=== PATIENT | female | born 1965 | race Caucasian/White ===

== ENCOUNTER 2023-12-12 11:21 | Emergency (ER) | payer OTHER, SELFPAY ==
[2023-12-12 11:26] VITALS: BP 133/84
--- NOTE | 2023-12-12 11:53 | ED.GENMED ---
History of Present Illness
General
Chief Complaint: DVT/Possible Blood Clot
Source: patient
Exam Limitations: none
Time Seen by Provider: 12/12/23 11:36
Nursing documentation reviewed up to this point in time: agreed with
History of Present Illness
History of Present Illness:
Patient is a 58-year-old female who presents to the ER for evaluation. Patient reports about a week ago she noticed bruising on her right lower leg but denies any injury. She has noticed soreness to this leg for the past 3 days. She has no prior
history of DVT PE. She is not on control/estrogen does not smoke. There is a very small area of bruising to the right wrist. No blood thinners. She denies shortness of breath.
Past History
Past History
ED Past Medical History: Psychiatric (Anxiety) and Other (Chronic sinusitis)
ED Past Surgical History: and Other (Gastric lap band 2007)
Social History
Tobacco: Non-smoker
Alcohol: Occasional
Personal:
Living: with family
Employment: Employed
Family History
Family History: Hypertension; Negative Early CAD
Review of Systems
Review of Systems
Allergies reviewed?: Yes
All Other Systems: ROS reviewed and negative except as documented in HPI and ROS
Constitutional: Reports no symptoms
Cardiac: Reports no symptoms
ABD/GI: Reports no symptoms
Musculoskeletal: Reports no symptoms
Skin: Reports no symptoms
Neurological: Reports no symptoms
Psychiatric: Reports no symptoms
Phy Exam
General Physical Exam
General Presentation: no apparent distress
General Skin: warm and dry
General Habitus: normal
General Mental: alert
General Hydration: appears well hydrated
Neurological Exam
Neurological Exam: alert and oriented x3
[place] Coma Scale
Eye Opening: Spontaneous
Verbal Response: Oriented
Motor Response: Obeys Commands
GCS Total Score: 15
Musculoskeletal Exam
Musculoskeletal Exam: other (rle with strong pulses + ecchymosis to right lower leg no obvious swelling nontender full range of motion to knee ankle; very sm area of ecchymosis to right wrist )
Skin Exam
Skin Exam: normal color and warm/dry
Psychiatric Exam
Psychiatric Exam: normal mood/affect
Course
Orders/Labs/Results
Orders:
Orders
12/12/23 11:34
US Periph Venous LOWER Ext RT Urgent
Comment:
Reason For Exam: Atraumatic swelling
12/12/23 12:00
Complete Blood Count/With Diff Urgent
Comprehensive Metabolic Panel Urgent
Abnormal Lab Results
12/12/23
12:00
Hgb 16.1 H g/dL
(12.0-16.0)
Absolute Monos (auto) 0.7 H 10^3/uL
(0.1-0.6)
Absolute Eos (auto) 0.8 H 10^3/uL
(0-0.7)
Eosinophils % 7.7 H %
(0-6)
BUN 23 H mg/dl
(7-17)
Glucose 110 H mg/dl
(70-99)
Calcium 10.5 H mg/dl
(8.4-10.2)
12/12/23 12:00
12/12/23 12:00
Vital Signs
Initial and Last Documented VS:
Initial Vital Signs
Temp Pulse Resp BP Pulse Ox
98.1 F 102 18 133/84 98
12/12/23 11:26 12/12/23 11:26 12/12/23 11:26 12/12/23 11:26 12/12/23 11:26
Last Documented Vital Signs
Temp Pulse Resp BP Pulse Ox
98.1 F 102 18 133/84 98
12/12/23 11:26 12/12/23 11:26 12/12/23 11:26 12/12/23 11:26 12/12/23 11:26
MDM/Problems Addressed
MDM/Problems Addressed:
Patient is a 58-year-old female who presented for right leg bruising soreness though she reported no injury. She also small small amount of bruising to her right wrist.
She denies any shortness of breath fever chills. No prior history of DVT PE. She was concerned about possible blood clot. On exam there is no obvious swelling there is some ecchymosis as documented right lower leg it is very small amount of right
wrist she manage her self but is unsure. Ultrasound negative for DVT normal platelets no other acute findings patient ambulate with a steady gait well-appearing will DC with outpatient follow-up discussed return if any worsening of symptoms and
continue to follow-up with family doctor for reevaluation.
*Radiology
Radiology exam reviewed: radiology read reviewed and other (US neg )
*Pulse Oximetry
Patient hypoxic: no
*Critical Care Note
Total Time (30-74mins, 75-104mins- exclusive of procedures): Not Applicable
ED Attending Note
-
Portions of this chart may have been created with voice recognition software.� Occasional wrong word or��sound alike� substitutions may have occurred due to the inherent limitations of voice recognition software.
Discharge Plan
Departure
Patient Disposition: Home (Routine Discharge)
Date of Disposition: 12/12/23
Time of Disposition: 14:37
Patient with high blood pressure during this ER visit?: Yes
Condition: Fair
Covid-19: Not Applicable
Discharge Problem:
Acute leg pain
Prescriptions:
No Action
sertraline 50 MG tablet
50 mg PO DAILY
Control Pills
Patient Comments:
Control Pills. Patient takes a 3 week cycle pill.
oxycodone-acetaminophen 1 TABLET tablet
1 tab PO Q4HPRN PRN (Reason: moderate pain)
Patient Comments:
Can take to supplement pain relief of Tylenol or Advil #15 prescribed
Referrals:
Michaelle Barnes, [Family Provider] -
Activity Restrictions/Additional Instructions:
As discussed your ultasound is negative for a blood clot. There were no acute abnormalities on your labs. Follow-up with your family doctor the next several days for reevaluation of your symptoms. It is recommended that if symptoms persist then
a repeat ultrasound may be required.
Return if any worsening of symptoms.
Interventions
Interventions:
*Risk Screen - Suicide Last Done: 12/12/23 11:26
*General Assessment Last Done: 12/12/23 11:26
*Neglect/Abuse Screening Last Done: 12/12/23 11:26
Discharge Date and Time
Print Language: EGYPTIAN
[2023-12-12 12:07] LABS: % Basophils 0.8 % (0-2); % Eosinophils 7.7 % (0-6); % Immature Granulocytes 0.2 % (0-0.5); % Lymphocytes 33.6 % (20.5-51.1); % Neutrophils 50.7 % (42.2-75.2); Absolute Basophils 0.1 10^3/uL (0-0.2); Absolute Eosinophils 0.8 10^3/uL (0-0.7); Absolute Lymphocytes 3.4 10^3/uL (1.2-3.4); Absolute Monocytes 0.7 10^3/uL (0.1-0.6); Absolute Neutrophils 5.1 10^3/uL (1.4-6.5); Hematocrit 46.7 % (37.0-47.0); Hemoglobin 16.1 g/dL (12.0-16.0); Mean Corp Hgb Conc. 34.5 g/dL (33.0-37.0); Mean Corpuscular Hgb 30.2 pg (27.0-31.0); Mean Corpuscular Volume 87.6 fL (81.0-99.0); Mean Platelet Volume 10.1 fL (7.4-10.4); Nucleated Red Blood Cells % 0 %; Platelet Count 285 10^3/uL (130-400); Red Blood Cell Count 5.33 10^6/uL (4.20-5.40); Red Cell Dist. Width 13.2 % (11.5-14.5); White Blood Cell Count 10.1 10^3/uL (4.8-10.8)
[2023-12-12 12:21] LABS: ALT (SGPT) 25 U/L (0-35); AST (SGOT) 30 U/L (14-36); Albumin 4.8 g/dl (3.5-5.0); Alkaline Phosphatase 81 U/L (38-126); Blood Urea Nitrogen 23 mg/dl (7-17); Calcium 10.5 mg/dl (8.4-10.2); Carbon Dioxide 24 mmol/L (22-30); Chloride 105 mmol/L (98-107); Glucose 110 mg/dl (70-99); Potassium 3.9 mmol/L (3.5-5.1); Sodium 137 mmol/L (135-145); Total Bilirubin 0.9 mg/dl (0.2-1.3); Total Protein 7.3 g/dl (6.3-8.2); eGFR > 60.00
== END 2023-12-12 14:58 | disposition home or self-care (01) ==
LOC: EMR 11:21
PROVIDERS: Nurse Practitioner; EMERGENCY PHYSICIAN Emergency Medicine; FAMILY PHYSICIAN Family Medicine
DX: M79.604 Pain in right leg (principal); S80.11XA Contusion of right lower leg, initial encounter; X58.XXXA Exposure to other specified factors, initial encounter; F41.9 Anxiety disorder, unspecified; Z82.49 Family history of ischemic heart disease and other diseases of the circulatory system; Z98.84 Bariatric surgery status
CPT/HCPCS: 99284; 80053; 85025; 93971